=== PATIENT | male | born 1980 | race Two or more races ===

== ENCOUNTER 2025-01-16 16:46 | Emergency (ER) | payer MEDICAID, SELFPAY ==
[2025-01-16 17:19] VITALS: BP 126/77; PULSE 77; RESP 18; TEMP 36.6; O2SAT 97; BMI 30.7
[2025-01-16 18:39] VITALS: BP 135/81; PULSE 61; RESP 18; TEMP 37.2; O2SAT 98
--- NOTE | 2025-01-16 19:29 | EDNOTE_ITS ---
ED Skin Abcess FB-RME/HPI General Chief complaint: Ankle/Foot Injury Stated complaint: LEFT FOOT PAIN FROM WALKING ON HOT CONCRETE Time Seen by Provider: 01/16/25 17:32 Arrival date/time: 01/16/25 16:46 44M with no significant PMH presents to ED with several days of L foot pain after walking barefoot on hot concrete. Patient did not take pain meds. Limitations: no limitations Related Data Previous Rx's ?Medication ?Instructions ?Recorded ibuprofen 800 mg tablet (IBU) 800 mg PO Q8H #20 tabs 0 10/26/23 Allergies Allergy/AdvReac Type Severity Reaction Status Date / Time No Known Allergies Allergy Verified 01/16/25 16:50 Review of Systems Review of Systems Systems Reviewed: All systems reviewed, normal except as documented Constitutional Constitutional: Reports system reviewed and no additional complaints, except as documented, Denies fever(s) and Denies headache(s) ENT Ears, Nose, Mouth, and Throat: Denies disequilibrium and Denies headache(s) Cardiovascular Cardiovascular: Reports system reviewed and no additional complaints, except as documented, Denies chest pain and Denies dyspnea Respiratory Respiratory: Reports system reviewed and no additional complaints, except as documented, Denies cough and Denies dyspnea Gastrointestinal Gastrointestinal: Reports system reviewed and no additional complaints, except as documented, Denies abdominal pain, Denies nausea and Denies vomiting Integumentary/Breasts Skin/Breast: Reports as per HPI and Reports skin pain Neurologic Neurologic: Reports system reviewed and no additional complaints, except as documented, Denies confusion, Denies disequilibrium and Denies headache(s) Psychiatric Psychiatric: Denies confusion Past Medical History Past Medical History CARDIAC: Negative Congestive Heart Failure RESPIRATORY: Negative Chronic Obstructive Pulmonary Disease (COPD) GENITOURINARY: Negative Renal Disease ENDOCRINE: Negative Diabetes Mellitus Type 1 or Diabetes Mellitus Type 2 Social History SMOKING STATUS: Never smoker ED Exam General Limitations: Present no limitations General appearance: Present alert and in no apparent distress Head Head exam: Present atraumatic Eye Eye exam: Present normal appearance, PERRL and EOMI ENT ENT exam: Present normal exam, normal oropharynx and mucous membranes moist Neck Neck exam: Present normal inspection, full ROM and trachea midline Chest Chest inspection: Present normal inspection and symmetric chest wall rise Respiratory Respiratory exam: Present normal lung sounds bilaterally Cardiovascular Cardiovascular exam: Present regular rate, normal rhythm and normal heart sounds Abdominal Exam Abdominal exam: Present soft and normal bowel sounds Extremities Exam Extremities exam: Present normal inspection and full ROM Back Exam Back exam: Present normal inspection and full ROM Neurological Exam Neurological exam: Present alert, oriented X3 and CN II-XII intact Psychiatric Psychiatric exam: Present normal affect and normal mood Skin Skin exam: Present warm, dry, intact and normal color Course Quality Measures none Vital Signs Vital signs: Vital Signs Temperature 98 F 01/16/25 17:19 Pulse Rate 77 01/16/25 17:19 Respiratory Rate 18 01/16/25 17:19 Blood Pressure 126/77 01/16/25 17:19 Pulse Oximetry (%) 97 01/16/25 17:19 Oxygen Delivery Method Room Air 01/16/25 17:19 O2 at 97% on RA and WNLs Skin / Abscess / Foreign Body MDM Narrative MDM Narrative:: 44M with no significant PMH presents to ED with several days of L foot pain after walking barefoot on hot concrete. Patient did not take pain meds. Physical exam reveals some calluses on L sole. No redness. Gait normal. Patient is afebrile, calm, and alert. Health Officer given. Patient data External records reviewed:: [facility] previous records Clinical information provided by:: patient Social determinants that could affect healthcare access:: none Patient has the following chronic illnesses:: none How is presenting disease/condition affected by chronic disease/condition?: no chronic disease Evaluation data The following diagnostics were reviewed and interpreted by me:: other (specify) (none) Lab and/or radiology exams considered but not ordered:: not ordered Interpretation Summary: n/a Medications / Prescriptions Medications or Prescriptions considered but not ordered:: not ordered Medication administrations:: n/a Consultations Consultation(s) initiated? (list below): No Diagnosis Skin/Abscess Differential Diagnosis: abscess of skin or subcutaneous tissue, viral exanthem, dermatophytosis, urticaria, herpes zoster, allergic reaction to drug, cellulitis, eczema, insect bites, impetigo, contact dermatitis and other (foot pain) Most likely diagnosis given after review of the tests above:: foot pain Admission Indicated Admission indicated?: not indicated Admission Request Was there a request for admission?: No Disposition Plan Disposition Plan: Discharge Discharge Attestation Discharge Attestation: The patient and all family members were given an opportunity to ask questions and understood the discharge instructions. Discharge instructions specifically effects, indications for sooner follow up or return to the emergency department, and the expected course of current diagnosis. Patient condition: Stable Discharge Plan Plan Patient Disposition: HOME (Self Care) Discharge Disposition comment: Stable Prescriptions/Referrals Prescriptions/Med Rec: No Action ibuprofen [IBU] 800 mg tablet 800 mg PO Q8H Qty: 20 0RF Referrals: No Primary/Family,Physician [Primary Care Provider] - In 1 week Problem List Clinical Impression: Foot pain Patient/Caregiver Discharge Instructions Education Materials: ED Myalgias Additional Instructions: Please follow-up with PCP within 24-48 hours and return immediately if symptoms worsen. NSAIDs like ibuprofen tend to work better for this type of pain. Stop walking on hot concrete bare foot. Print Language: Grenadian Stand Alone Forms: Patient Portal Info Letter ESTEBAN/MIC Supervising Physician ESTEBAN/MIC Supervising Physician: Dr. Hollingsworth
== END 2025-01-16 21:00 | disposition home or self-care (01) ==
PROVIDERS: Emergency Provider Emergency Medicine
DX: M79.672 Pain in left foot (principal)
CPT/HCPCS: 99281

== ENCOUNTER 2025-07-08 08:58 | Emergency (ER) | payer MEDICAID, SELFPAY ==
[2025-07-08 09:43] VITALS: BP 127/79; PULSE 62; RESP 18; TEMP 37; O2SAT 99; BMI 31.6
--- NOTE | 2025-07-08 10:02 | EDNOTE_ITS ---
ED Ear RME/HPI General Chief complaint: Ear Stated complaint: INFECTION L) EAR, PAIN L) GROIN 09/09 Time Seen by Provider: 07/08/25 09:37 Arrival date/time: 07/08/25 08:58 RME / HPI RME / HPI Narrative: 44-year-old male with a past medical history of high cholesterol presents to the ER complaining of left lower quadrant pain x 1 month without fever, nausea, vomiting, diarrhea, dysuria, testicular pain. Patient additionally complaining of left ear pain and discharge x 2 days. Related Data Previous Rx's ?Medication ?Instructions ?Recorded ibuprofen 800 mg tablet (IBU) 800 mg PO Q8H #20 tabs 0 10/26/23 ciprofloxacin 0.3 %-dexamethasone 4 drp otic (ear) BID 7 days #7.5 mL 07/08/25 0.1 % ear drops,suspension ciprofloxacin 0.3 %-dexamethasone 4 drp otic (ear) BID 7 days #7.5 mL 07/08/25 0.1 % ear drops,suspension Allergies Allergy/AdvReac Type Severity Reaction Status Date / Time No Known Allergies Allergy Verified 07/08/25 09:04 ED Exam Narrative Physical exam: constitutional: Patient alert and oriented. Well appearing. No acute distress. Not toxic appearing. Head: Normocephalic, atraumatic. Eyes: Periorbital regions bilaterally normal to inspection. Conjunctiva clear bilaterally. Sclera anicteric bilaterally. Pupils equal, round, reactive to light bilaterally. Extraocular movements intact bilaterally. Ears: No mastoid tenderness bilaterally. Left EAC with edema, erythema, exudate. TMs without erythema or bulging. Mouth/Throat: Mucous membranes moist. No stridor or muffled voice. Uvula midline. Rise and fall of soft palate normal. No tonsillar edema or exudate. No peritonsillar fullness. No trismus. Handling secretions without difficulty. Airway widely patent. Neck: Supple. Trachea midline. No JVD. No nuchal rigidity. No midline tenderness or step-offs. Normal range of motion. Respiratory: Normal effort. No accessory muscle use or respiratory distress. Lungs clear to auscultation bilaterally without rhonchi, wheezes, or crackles. Cardiovascular: RRR. Normal S1/S2. No murmurs or rubs. Radial pulses intact bilaterally. Abdomen: Soft. Non-distended. Positive mild tenderness to palpation to left lower quadrant. No pulsatile mass. No guarding or rebound. Negative Choi?s sign. Negative McBurney?s point tenderness. Negative Rovsing?s. : Patient declined exam as he states he has no problems with his groin. Back: No midline tenderness or step-offs. No CVA tenderness to palpation bilaterally. Upper Extremities: No gross deformities. Lower Extremities: No gross deformities. No edema or calf tenderness. Neuro: Speech normal. No gross motor or sensory deficits to upper or lower extremities bilaterally. GCS 15. CN II?XII grossly intact. Skin: Warm, dry, normal color. Psych: Normal affect. Cooperative. Normal insight. Course Quality Measures none Orders Category Date Time Status NPO NOW Care 07/08/25 10:13 Active Diet NPO (NOW) Diet 07/08/25 10:[address] abdomen pelvis wo con Stat Exams 07/08/25 10:13 Completed CBC Stat Lab 07/08/25 10:24 Completed CMP [Comprehensive Metabolic Panel] Stat Lab 07/08/25 10:24 Completed Lipase Stat Lab 07/08/25 10:24 Completed Urinalysis Stat Lab 07/08/25 10:25 Completed Urine Culture Stat Lab 07/08/25 10:25 Received Ketorolac Inj [Toradol Inj] Med 07/08/25 10:13 Discontinued 30 mg IM X1 ONE Vital Signs Vital signs: Vital Signs Temperature 98.6 F 07/08/25 09:43 Pulse Rate 62 07/08/25 09:43 Respiratory Rate 18 07/08/25 09:43 Blood Pressure 127/79 07/08/25 09:43 Pulse Oximetry (%) 99 07/08/25 09:43 Oxygen Delivery Method Room Air 07/08/25 09:43 Ear MDM Narrative MDM Narrative:: Concern for left otitis externa No signs of mastoiditis or acute [employer] 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 However, there are no signs of peritonitis or other life- threatening or serious etiology. I considered admission; however, given negative work up and imaging, admission is not indicated. Serial abdominal exams were benign throughout the ED stay, and the patient tolerated oral intake without difficulty. The inherent uncertainty with undifferentiated abdominal pain was emphasized, and strict return precautions were provided. The patient has been instructed that this presentation could represent an early acute abdominal process. The plan is for mandatory re-evaluation within 24 hours and immediate return for worsening, persistence, or change in symptoms. The patient may follow up with their primary care provider or return to the ED as appropriate. The patient appears stable for discharge at this time. Incidental pulmonary nodule noted, mild transaminitis, mild thickening of bladder all safe for discharge follow-up with PMD At the time of reassessment prior to discharge, the patient remains alert and oriented ?3 with GCS 15. Vitals are normal, pain is controlled, and the patient is tolerating oral intake without nausea or vomiting. The patient is agreeable to discharge and verbalizes understanding of the diagnosis, studies, treatment plan, medications (including side effects/precautions), and strict ER return precautions as discussed in the ED. All concerns were addressed, and the patient is comfortable with the plan. Patient data External records reviewed:: [facility] previous records Clinical information provided by:: patient Social determinants that could affect healthcare access:: none Patient has the following chronic illnesses:: High cholesterol How is presenting disease/condition affected by chronic disease/condition?: u neffected by Evaluation data The following diagnostics were reviewed and interpreted by me:: lab results and radiology exam(s) Lab and/or radiology exams considered but not ordered:: Additional Labs and radiology considered, but not ordered as they were not clinically indicated at this time. Interpretation Summary: Lab work notable for 0.02 thousand immature granulocyte numbers being minimally elevated with a normal WBC count of 6.4 CBC without severe leukocytosis, anemia, or thrombocytopenia CMP without severe hyperbilirubinemia, acute renal failure or severe electrolyte derangement additionally mild transaminitis with AST of 41 and ALT 64 Lipase without severe elevation UA negative and doubt cystitis as patient without any urinary symptoms Medications / Prescriptions Medications or Prescriptions considered but not ordered:: I ordered medications based on the patient?s clinical needs and assessment, as documented in the chart. For medications not prescribed, they were not indicated for the patient's current condition, and I determined they were unnecessary at this time to avoid potential risks or complications. Medication administrations:: Medication Administration History Discontinued Medications Ketorolac Tromethamine (Ketorolac Inj 30 Mg/Ml Vial) 30 mg IM X1 ONE Stop: 07/08/25 10:14 Last Admin: 07/08/25 11:04 Dose: 30 mg Documented By: As noted Consultations Consultation(s) initiated? (list below): No Diagnosis Ear Differential Diagnosis: otitis externa, otitis media and other Most likely diagnosis given after review of the tests above:: Otitis externa complicated by abdominal pain of unclear etiology Admission Indicated Admission indicated?: not indicated Admission Request Was there a request for admission?: No Disposition Plan Disposition Plan: Discharge Discharge Attestation Discharge Attestation: The patient and all family members were given an opportunity to ask questions and understood the discharge instructions. Discharge instructions specifically effects, indications for sooner follow up or return to the emergency department, and the expected course of current diagnosis. Patient condition: Stable Medical Decision Making Lab Data 07/08/25 10:24 07/08/25 10:24 Labs: Lab Results 07/08/25 07/08/25 Range/Units 10:24 10:25 WBC 6.4 (3.8-10.6) Thou/mm3 RBC 4.88 (4.50-5.90) Miln/mm3 Hgb 14.7 (13.5-16.0) g/dL Hct 42.4 (41.0-53.0) % MCV 87 (80-100) fL MCH 30.1 (25.0-35.0) pg MCHC 34.7 (31.0-37.0) g/dl RDW Std Deviation 40.6 (35.1-43.9) fL Plt Count 184 (140-440) Thou/mm3 Neut % (Auto) 55 (37-80) % Lymph % (Auto) 31 (10-50) % Emmet % (Auto) 8 (0-12) % Eos % (Auto) 5 (0-10) % Baso % (Auto) 1 (0-2.5) % Neut # (Auto) 3.5 (1.8-7.7) Thou/mm3 Lymph # (Auto) 2.0 (1.0-4.8) Thou/mm3 Emmet # (Auto) 0.5 (0.0-0.8) Thou/mm3 Eos # (Auto) 0.3 (0.0-0.5) Thou/mm3 Baso # (Auto) 0.1 (0.0-0.2) Thou/mm3 Immature Gran # (Auto) 0.02 H (0.00-0.00) Thou/mm3 Absolute Nucleated RBC 0.00 (0.00-0.00) Thou/mm3 Immature Gran % 0 (0-0) % Nucleated RBC % 0 (0) /100 WBC Sodium 143 (136-145) mMol/L Potassium 3.6 (3.4-5.1) mMol/L Chloride 106 (98-107) mMol/L Carbon Dioxide 29.8 (20.0-31.0) mMol/L Anion Gap 7 (7-16) BUN 9 (9-23) mg/dL Creatinine 0.8 (0.6-1.3) mg/dL Estim Creat Clear Calc 124.4 (>60) mL/min eGFR > 60 (60 - ) See Note BUN/Creatinine Ratio 11 L (12-20) Ratio Glucose 97 (74-106) mg/dL Calculated Osmolality 283 (275-295) Calcium 8.9 (8.3-10.6) mg/dL Corrected Calcium 8.9 (8.5-10.1) mg/dL Total Bilirubin 0.5 (0.3-1.2) mg/dL AST 41 H (0-34) U/L ALT 64 H (10-49) U/L Alkaline Phosphatase 78 (46-116) U/L Total Protein 7.7 (5.7-8.2) gm/dL Albumin 4.5 (3.5-5.0) gm/dL Globulin 3.2 (2.3-3.5) gm/dL Albumin/Globulin Ratio 1.4 (1.2-2.2) Lipase 32 (12-53) U/L Ur Collection Type Voided Urine Color Lt-Yellow (Lt Yel-Yel) Urine Clarity Clear (Clear/Hazy) Urine pH 6.5 (5.0-7.0) Ur Specific Herscher 1.017 (1.001-1.035) Urine Protein Negative (Neg - Trace) Urine Glucose (UA) Negative (Negative) Urine Ketones Negative (Negative) Urine Blood Negative (Negative) Urine Nitrite Negative (Negative) Urine Bilirubin Negative (Negative) Urine Urobilinogen (Auto) Negative (0.0-1.0) mg/dL Ur Leukocyte Esterase Negative (Negative) Urine RBC 3 (0-3) /hpf Urine WBC 1 (0-5) /hpf Ur Squamous Epith Cells 0 (0-5) /hpf Urine Bacteria None (None) Discharge Plan Plan Patient Disposition: HOME (Self Care) Patient condition on transfer: Stable Prescriptions/Referrals Prescriptions/Med Rec: New ciprofloxacin-dexamethasone 0.3-0.1 % drops,suspension 4 drp otic (ear) BID 7 Days Qty: 7.5 0RF ciprofloxacin-dexamethasone 0.3-0.1 % drops,suspension 4 drp otic (ear) BID 7 Days Qty: 7.5 0RF No Action ibuprofen [IBU] 800 mg tablet 800 mg PO Q8H Qty: 20 0RF Referrals: [facility] [Provider Group] - In 1 week No Primary/Family,Physician [Primary Care Provider] - In 1 week Problem List Clinical Impression: Otitis externa, Abdominal pain Patient/Caregiver Discharge Instructions Education Materials: Abdominal Pain, ED Pulmonary Nodule, Solitary, ED External Ear Infection (Adult) Additional Instructions: We also noticed a pulmonary nodule which you need to follow-up with your primary doctor and a wharf attendant for further imaging to make sure you do not have cancer. Follow up with your primary medical doctor within 24 hours. Return to the Emergency Room immediately for any new, worsening, continuing symptoms or any concerns at all. Return to the Emergency Room within 24 hours if you are unable to follow up with your primary medical doctor within 24 hours. Tambi?n notamos un n?dulo pulmonar que necesita seguimiento con bhardwaj m?dico de cabecera y un neum?logo para obtener m?s im?genes para asegurarse de que no tiene c?ncer. Acuda a urgencias de inmediato si presenta s?ntomas nuevos, que empeoran o persisten, o si tiene alguna inquietud. Si no puede acudir a urgencias en 24 horas, acuda a urgencias en 24 horas. Print Language: Polish Stand Alone Forms: Qing Award Info., Patient Portal Info Letter PA/WEIGHT REDUCTION SPECIALIST Supervising Physician PA/WEIGHT REDUCTION SPECIALIST Supervising Physician: Dr. Gamboa
--- NOTE | 2025-07-08 10:13 | XR_ITS ---
Examination: CT abdomen and pelvis without contrast. Coronal 3-D reconstructions. Sagittal 2-D reconstructions. Date and time of exam: July 08, 2025, 1126 hours INDICATIONS: Onset periumbilical pain today CTDI: vol (mGy): 7.64 DLP: (mGycm): 461 Technique: Axial images of the abdomen have been obtained, 3 mm slice thickness Intravenous contrast material has not been administered. Low dose protocols were performed. One or more of the following dose reduction techniques were used; automated exposure control, adjustment of the mA and/or KV according to patient size, use of iterative reconstruction technique. Findings: 14 mm pulmonary nodule in the right lower lung zone No visualized liver or splenic lesion No gallstones No pancreatic or adrenal mass No renal or ureteral calculi, no hydronephrosis Aorta normal size. No bowel obstruction. Normal appendix No diverticulitis Normal seminal vesicles No prostatomegaly Minimal thickening urinary bladder wall up to 4 mm Adequate bone density IMPRESSION: 14 mm pulmonary nodule right lower lung zone, consider CT chest without contrast follow-up No renal or ureteral calculi, no hydronephrosis Normal appendix No bowel obstruction or diverticulitis. Mild urinary bladder wall thickening, consider cystitis
[2025-07-08 10:33] LABS: Collection Type, Urine Voided; Squamous Epithelial Cell,Urine 0 /hpf (0-5)
[2025-07-08 10:34] LABS: Basophils # (Auto) 0.1 Thou/mm3 (0.0-0.2); Basophils % (Auto) 1 % (0-2.5); Eosinophils # (Auto) 0.3 Thou/mm3 (0.0-0.5); Eosinophils % (Auto) 5 % (0-10); Hematocrit 42.4 % (41.0-53.0); Hemoglobin 14.7 g/dL (13.5-16.0); Immature Granulocytes Auto 0.02 Thou/mm3 (0.00-0.00); Lymphocytes # (Auto) 2.0 Thou/mm3 (1.0-4.8); Lymphocytes % (Auto) 31 % (10-50); Mean Corpuscular HGB Conc 34.7 g/dl (31.0-37.0); Mean Corpuscular Hemoglobin 30.1 pg (25.0-35.0); Mean Corpuscular Volume 87 fL (80-100); Monocytes # (Auto) 0.5 Thou/mm3 (0.0-0.8); Monocytes % (Auto) 8 % (0-12); Neutrophils # (Auto) 3.5 Thou/mm3 (1.8-7.7); Neutrophils % (Auto) 55 % (37-80); Nucleated Red Blood Cell # 0.00 Thou/mm3 (0.00-0.00); Nucleated Red Blood Cell % 0 /100 WBC (0); Platelet Count 184 Thou/mm3 (140-440); RDW Standard Deviation 40.6 fL (35.1-43.9); Red Blood Count 4.88 Miln/mm3 (4.50-5.90); White Blood Count 6.4 Thou/mm3 (3.8-10.6)
[2025-07-08 10:44] LABS: Bilirubin,Urine Negative (Negative); Blood,Urine Negative (Negative); Clarity,Urine Clear (Clear/Hazy); Color,Urine Lt-Yellow (Lt Yel-Yel); Glucose, Urine Negative (Negative); Ketones,Urine Negative (Negative); Leukocyte Esterase,Urine Negative (Negative); Nitrite,Urine Negative (Negative); PH,Urine 6.5 (5.0-7.0); Protein,Urine Negative (Neg - Trace); RBC,Urine 3 /hpf (0-3); Specific Gravity,Urine 1.017 (1.001-1.035); Urobilinogen,Urine Negative mg/dL (0.0-1.0); WBC,Urine 1 /hpf (0-5)
[2025-07-08 10:55] LABS: Alanine Aminotransferase 64 U/L (10-49); Albumin, Serum 4.5 gm/dL (3.5-5.0); Albumin/Globulin Ratio 1.4 (1.2-2.2); Alkaline Phosphatase 78 U/L (46-116); Anion Gap 7 (7-16); Aspartate Amino Transferase 41 U/L (0-34); BUN/Creatinine Ratio 11 Ratio (12-20); Bilirubin,Total 0.5 mg/dL (0.3-1.2); Blood Urea Nitrogen 9 mg/dL (9-23); Calcium 8.9 mg/dL (8.3-10.6); Calcium (Corrected) 8.9 mg/dL (8.5-10.1); Carbon Dioxide 29.8 mMol/L (20.0-31.0); Chloride 106 mMol/L (98-107); Creatinine (Component) 0.8 mg/dL (0.6-1.3); Estimated Creatinine Clearance 124.4 mL/min (>60); Globulin 3.2 gm/dL (2.3-3.5); Glucose 97 mg/dL (74-106); Lipase 32 U/L (12-53); Osmolality,Calculated 283 (275-295); Potassium 3.6 mMol/L (3.4-5.1); Sodium 143 mMol/L (136-145); Total Protein 7.7 gm/dL (5.7-8.2); eGFR > 60 See Note
[2025-07-08] MEDS: KETOROLAC INJ 30 MG/ML VIAL IM (11:04)
== END 2025-07-08 12:35 | disposition home or self-care (01) ==
PROVIDERS: Emergency Provider Physician Assistant
DX: H60.92 Unspecified otitis externa, left ear (principal); R10.825 Periumbilic rebound abdominal tenderness
CPT/HCPCS: 36415; 74176; 80053; 81001; 83690; 85025; 87086; 96372; 99283; J1885